=== PATIENT | female | born 1930 | race Caucasian/White ===

== ENCOUNTER 2017-11-09 10:35 | Emergency (ER) | payer MEDICARE, MEDICAID ==
[~2017-11-09] VITALS: Ht 147.3 cm; Wt 60.3 kg
[~2017-11-09 10:35] MED LIST: ASPIRIN EC81 MG ORAL; BENICAR HCT 401 EAC1 ORAL; CAPTOPRIL25 M1 PO; COREG6.25 MG ORAL; CRESTOR10 M1 ORAL; DEXILANT60 MG ORAL; JANUMET 50-1,01 EACH ORAL; MECLIZINE HCL25 MG ORAL
[2017-11-09] MEDS ORDERED: INVOKANA300 MG PO (11:30)
[2017-11-09] MEDS ORDERED: MAGNESIUM27 MG PO (11:30)
--- NOTE | 2017-11-09 11:51 | Emergency Room Report ---
History of Present Illness General Chief Complaint: Abdominal Pain Source: Patient, Family Member Present Illness HPI 86-year-old female walks in with intermittent left-sided abdominal pain for one week no associated nausea vomiting or diarrhea Change in stool caliber from hard to liquid no blood in stool or dark stool No fever or chills Colonoscopy was 5 years ago No previous abdominal or pelvic surgery History of high blood pressure diabetes no cad risk factors or previous CO Allergies: Coded Allergies: PENICILLINS (Unverified Allergy, Intermediate, 03/23/14) Patient History Past Medical History: none Past Surgical History: none Pertinent Family History: none Social History: Denies: smoking, alcohol use, drug use Last Menstrual Period: Unk Now: No Immunizations: UTD Reviewed Nursing Documentation: PMH: Agreed, PSxH: Agreed Nursing Documentation-PMH Hx Cardiac Problems: Yes Hx Hypertension: Yes Hx Pacemaker: No Hx Asthma: No Hx COPD: No Hx Diabetes: Yes Hx Cancer: No Hx Gastrointestinal Problems: Yes Hx Dialysis: No Hx Neurological Problems: No Hx Cerebrovascular Accident: No Hx Seizures: No Review of Systems All Other Systems: negative except mentioned in HPI Physical Exam Vital Signs Date Time Temp Pulse Resp B/P (MAP) Pulse Ox O2 Delivery O2 Flow Rate FiO2 11/09/17 10:47 99.1 84 17 156/75 98 Room Air Sp02 EP Interpretation: reviewed, normal General Appearance: normal inspection, well appearing, no apparent distress, alert, GCS 15, non-toxic Head: normocephalic, atraumatic Eyes: bilateral eye PERRL, bilateral eye EOMI ENT: normal ENT inspection, hearing grossly normal, normal pharynx, no angioedema, normal voice, TMs + canals normal, uvula midline, moist mucus membranes Neck: normal inspection, full range of motion, supple, thyroid normal, no meningismus, no bony tend Respiratory: normal inspection, lungs clear, normal breath sounds, no rhonchi, no respiratory distress, no retraction, no accessory muscle use, no wheezing, speaking full sentences Cardiovascular #1: regular rate, rhythm, no edema, no JVD, normal capillary refill Gastrointestinal: normal inspection, normal bowel sounds, soft, no mass, no peritonitis, non-distended, no guarding, no hernia, no pulsatile mass, other - Left-sided abdominal tenderness with mild guarding. No peritonitis or rebound Genitourinary: no CVA tenderness Musculoskeletal: normal inspection, back normal, normal range of motion, no calf tenderness, pelvis stable, Radha's Sign negative Neurologic: normal inspection, alert, oriented x3, responsive, clinical program consultant III-XII nml as tested, motor strength/tone normal, cerebellar normal, normal gait, speech normal Psychiatric: normal inspection, judgement/insight normal, mood/affect normal, no suicidal/homicidal ideation, no delusions Skin: normal inspection, normal color, no rash Lymphatic: normal inspection, no adenopathy Medical Decision Making Diagnostic Impression: Primary Impression: Abdominal pain Qualified Codes: R10.32 - Left lower quadrant pain Additional Impression: Epiploic appendagitis ER Course 86-year-old female with abdominal pain Labs no leukocytosis, no LFTs or lipase abnormality no other metabolic abnormality CT: Inflammatory stranding surrounding fat density consistent with epiploic appendicitis with associated focal wall thickening Questionable diverticulitis however this is likely given recent change in stool caliber she is otherwise very well-appearing, nonseptic appearing We'll give empiric Antibiotics Recommend close followup ER course: Patient has remained stable during ED stay. Disposition: Patient is to be discharged to home. Prescriptions given are levaquin, flagyl Patient is instructed to follow up with their primary care doctor within 5 days. Strict return precautions discussed with patient such as fever, chills, worsening/severe pain, nausea, vomiting, which may indicate severe illness. Patient verbalizes understanding and agrees with plan. Please note that this Emergency Department Report was dictated using [employer] trimmer technology software, occasionally this can lead to erroneous entry secondary to interpretation by the dictation equipment Rhythm Strip Diag. Results EP Interpretation: yes Rate: 65 Rhythm: NSR, no PVC's, no ectopy Last Vital Signs Date Time Temp Pulse Resp B/P (MAP) Pulse Ox O2 Delivery O2 Flow Rate FiO2 11/09/17 10:47 99.1 84 17 156/75 98 Room Air Status: improved Disposition: HOME, SELF-CARE KRISTIE GAVIRIA M.D. Nov 09, 2017 11:51
[2017-11-09 12:01] VITALS: BP 156/75
[2017-11-09 12:24] LABS: APPEARANCE,URINE CLEAR; BILIRUBIN, URINE NEGATIVE (NEGATIVE); GLUCOSE, URINE (UA) 4+ (NEGATIVE); KETONES,URINE 2+ (NEGATIVE); LEUKOCYTE ESTERASE ,URINE 1+ (NEGATIVE); NITRITE,URINE NEGATIVE (NEGATIVE); PH,URINE 5 (4.5-8.0); PROTEIN,URINE NEGATIVE (NEGATIVE); UROBILINOGEN,URINE NORMAL MG/DL (0.0-1.0)
[2017-11-09 12:39] LABS: BASOPHILS % (AUTO) 0.5 % (0.0-2.0); EOSINOPHILS % (AUTO) 0.6 % (0.0-3.0); HEMATOCRIT 38.7 % (37.0-47.0); HEMOGLOBIN 12.1 G/DL (12.0-16.0); LYMPHOCYTES % (AUTO) 12.6 % (20.0-45.0); MEAN CORPUSCULAR VOLUME 84 FL (80-99); MONOCYTES % (AUTO) 9.4 % (1.0-10.0); NEUTROPHILS % (AUTO) 76.9 % (45.0-75.0); PLATELET COUNT 183 K/UL (150-450); RED BLOOD COUNT 4.62 M/UL (4.20-5.40); RED CELL DISTRIBUTION WIDTH 13.5 % (11.6-14.8); WHITE BLOOD COUNT 8.2 K/UL (4.8-10.8)
[2017-11-09 12:57] LABS: COLOR,URINE PALE YELLOW
[2017-11-09 13:11] LABS: ANION GAP 7 mmol/L (5-15); BLOOD UREA NITROGEN 14 mg/dL (7-18); CALCIUM 9.9 MG/DL (8.5-10.1); CARBON DIOXIDE 27 MMOL/L (21-32); CHLORIDE 106 MMOL/L (98-107); CREATININE 0.8 MG/DL (0.55-1.30); POTASSIUM 4.4 MMOL/L (3.5-5.1); SODIUM 140 MMOL/L (136-145)
[2017-11-09 13:41] LABS: ALANINE AMINOTRANSFERASE 20 U/L (12-78); ALBUMIN/GLOBULIN RATIO 0.9 (1.0-2.7); ALKALINE PHOSPHATASE 117 U/L (46-116); ASPARTATE AMINO TRANSFERASE 16 U/L (15-37); BILIRUBIN,TOTAL 0.5 MG/DL (0.2-1.0)
[2017-11-09] MEDS ORDERED: LEVAQUIN750 MG ORAL (14:50)
[2017-11-09] MEDS ORDERED: METRONIDAZOLE500 MG ORAL (14:50)
[2017-11-09 14:52] VITALS: BP 150/71
[2017-11-09] MEDS ORDERED: CLINDAMYCIN HC300 MG ORAL (14:59)
[2017-11-09 15:02] VITALS: BP 150/71
--- NOTE | 2017-11-12 13:48 | Diagnostic Imaging Report ---
Indication: Abdominal pain Technique: CT of the abdomen and pelvis utilizing automated exposure control with intravenous contrast. Venous scanning performed. CT dose: Total DLP 685 mGycm; CTDI vol 14.1 mGy Comparison: None Findings: There is a 1.6 x 0.6 cm irregular density within the right lower lobe series 7 image 8. A tiny hiatal hernia is present. Liver, adrenal glands and spleen are unremarkable. There is fatty replacement of the pancreatic head and uncinate process. No CT dense gallstones are identified. There is a left renal cyst that measures 5.3 cm. Right renal parapelvic cysts are seen. Atherosclerotic changes are present. The abdominal aorta is normal in caliber. There is inflammatory stranding surrounding fat density within the left abdomen abutting the descending colon with mild wall thickening. There is no appendicitis. The uterus is absent. Bladder is grossly unremarkable. Degenerative changes of the spine are noted. There is osteopenia. Impression: Inflammatory stranding surrounding fat density in the left abdomen abutting the descending colon could represent epiploic appendigitis. Mild wall thickening of the adjacent descending colon and diverticulitis or other colonic pathology considered less likely but not completely excluded. Follow-up recommended for further evaluation. Small hiatal hernia. Atherosclerotic changes. Left renal cyst. Right renal parapelvic cysts. Approximately 1.6 x 0.6 cm elongated slightly irregular density of the right lower lobe. Although this may be inflammatory, neoplastic etiologies cannot be excluded. Follow-up/further evaluation recommended. Other findings as above. The CT scanner at [facility] is accredited by the [employer] and the scans are performed using protocols designed to limit radiation exposure to as low as reasonably achievable to attain images of sufficient resolution adequate for diagnostic evaluation.
== END 2017-11-09 15:18 | disposition home or self-care (01) ==
LOC: EMR 11:15
DX: R10.9 Unspecified abdominal pain (principal); K63.89 Other specified diseases of intestine; E11.9 Type 2 diabetes mellitus without complications; Z88.0 Allergy status to penicillin
CPT/HCPCS: 36415; 74177; 80053; 81003; 83605; 83690; 85025; 99284; Q9967